=== PATIENT | male | born 1975 | race Caucasian/White ===

== ENCOUNTER 2024-01-01 21:43 | Emergency (ER) | payer OTHER, SELFPAY ==
[2024-01-01 21:45] VITALS: BP 151/105
[2024-01-01 22:19] LABS: % Basophils 0.3 % (0-2); % Eosinophils 0.4 % (0-6); % Immature Granulocytes 0.3 % (0-0.5); % Lymphocytes 16.5 % (20.5-51.1); % Monocytes 5.5 % (1.7-9.3); Absolute Eosinophils 0.1 10^3/uL (0-0.7); Absolute Lymphocytes 2.3 10^3/uL (1.2-3.4); Absolute Monocytes 0.8 10^3/uL (0.1-0.6); Absolute Neutrophils 10.9 10^3/uL (1.4-6.5); Hematocrit 43.4 % (39.0-52.0); Hemoglobin 15.6 g/dL (13.0-18.0); Mean Corp Hgb Conc. 35.9 g/dL (33.0-37.0); Mean Corpuscular Hgb 30.9 pg (27.0-31.0); Mean Corpuscular Volume 85.9 fL (80.0-94.0); Mean Platelet Volume 9.3 fL (7.4-10.4); Nucleated Red Blood Cells % 0 % (-); Platelet Count 300 10^3/uL (130-400); Red Blood Cell Count 5.05 10^6/uL (4.70-6.10); Red Cell Dist. Width 11.4 % (11.5-14.5); White Blood Cell Count 14.2 10^3/uL (4.8-10.8)
[2024-01-01 22:32] LABS: ALT (SGPT) 21 U/L (0-50); AST (SGOT) 24 U/L (17-59); Albumin 4.4 g/dl (3.5-5.0); Alkaline Phosphatase 83 U/L (38-126); Blood Urea Nitrogen 14 mg/dl (9-20); Calcium 9.9 mg/dl (8.4-10.2); Carbon Dioxide 26 mmol/L (22-30); Chloride 103 mmol/L (98-107); Glucose 107 mg/dl (70-99); Potassium 3.8 mmol/L (3.5-5.1); Sodium 140 mmol/L (135-145); Total Bilirubin 0.6 mg/dl (0.2-1.3); eGFR > 60.00
[2024-01-01 22:34] LABS: Lipase 155 U/L (23-300); Total Protein 7.5 g/dl (6.3-8.2)
[2024-01-01 22:43] VITALS: BP 160/106
[2024-01-01 22:44] VITALS: BMI 24.1
[2024-01-01 23:00] VITALS: BP 146/89
--- NOTE | 2024-01-01 23:46 | ED.GENMED ---
History of Present Illness
General
Chief Complaint: Abdominal Symptoms
Source: patient
Exam Limitations: none
Time Seen by Provider: 01/01/24 23:01
Travel History
Have you had any contact with someone who has COVID-19?: No
Do you have any symptoms of coronavirus? Fever > 100 degrees, chills, cough, shortness of breath, sore throat, loss of taste or smell, muscle aches, or headache?: No
History of Present Illness
History of Present Illness:
This is a 48 year old male that comes in with c/o abd pain. States that this started a few months ago. States that he is nauseated, his stool has a fowl smell, is oily and thin. States that his PCP ordered some blood work and his Amylase and Lipase
where elevated. States that he has no appetite and has lost weight. States that he has had heart burn, and he feels foggy. Denies any fever, chills, chest pain, SOB, vomiting, diarrhea, dizziness, urinary burning.
Past History
Past History
ED Past Medical History: GERD, HTN, Psychiatric (Anxiety) and Other (Kidney stone, Back problems�thoracic herniated disks)
ED Past Surgical History: Urological (Kidney stent)
Social History
Tobacco: Former smoker
Alcohol: Occasional
Personal:
Living: with family
Employment: Employed
Review of Systems
Review of Systems
All Other Systems: ROS reviewed and negative except as documented in HPI and ROS
Constitutional: Reports no symptoms; Denies fever or chills
EENT: Reports no symptoms
Respiratory: Denies cough or trouble breathing
Cardiac: Denies chest pain
ABD/GI: Reports abdominal pain, nausea and other (Heart burn, Stool is narrow, fowl smelling and oily); Denies vomiting or diarrhea
: Reports no symptoms; Denies dysuria, frequency or urgency
Musculoskeletal: Reports no symptoms
Skin: Reports no symptoms
Neurological: Reports headache and other (feels like he is in a fog); Denies dizzy
Psychiatric: Reports no symptoms
Phy Exam
General Physical Exam
General Presentation: no apparent distress
General age: appears stated age
General Skin: warm and dry
General Habitus: normal
General Mental: alert
General Hydration: appears well hydrated
ENT Exam
ENT Exam: TM's normal, pharynx normal and neck supple
Eye Exam
Eye Exam: EOMI
Cardiovascular Exam
Cardiovascular Exam: regular rate/rhythm, no edema, no murmur and normal peripheral pulses
Pulmonary Exam
Pulmonary Exam: lungs clear, no respiratory distress, no rales, chest non tender, no crackles, no rhonchi, no wheezing and no cough
Gastrointestinal Exam
Gastrointestinal Exam: soft, no organomegaly, no pulsatile mass, non distended and other (Hypoactive bowel sounds, Slight Upper abd tenderness with palpation)
Musculoskeletal Exam
Musculoskeletal Exam: full ROM and no edema
Skin Exam
Skin Exam: normal color, warm/dry, no rash and no petechia
Psychiatric Exam
Psychiatric Exam: normal mood/affect
Course
Orders/Labs/Results
Orders:
Orders
01/01/24 21:50
IV Insert/Care/Rem.- Treatment PRN
01/01/24 21:51
Electrocardiogram (*1) Urgent
Reason for Study: Abdominal Pain
EKG- Treatment ONCE
01/01/24 22:01
Complete Blood Count/With Diff Urgent
Comprehensive Metabolic Panel Urgent
Lipase Urgent
01/01/24 23:45
0.9% Sodium Chloride 1000 ml [Nss] 1,000 ml IV BOLUS
Iohexol [Omnipaque] See Protocol PO NOW STA
Ketorolac [Toradol] 30 mg IV NOW STA
Pantoprazole [Protonix IV] 40 mg IV NOW STA
01/02/24 00:15
CT Abd/pel W Iv And Oral Contr Urgent
Reason For Exam: Abd pain, change in stool, Weight loss
Abnormal Lab Results
01/01/24
22:01
WBC 14.2 H 10^3/uL
(4.8-10.8)
RDW 11.4 L %
(11.5-14.5)
Absolute Neuts (auto) 10.9 H 10^3/uL
(1.4-6.5)
Absolute Monos (auto) 0.8 H 10^3/uL
(0.1-0.6)
Neutrophils % 77.0 H %
(42.2-75.2)
Lymphocytes % 16.5 L %
(20.5-51.1)
Glucose 107 H mg/dl
(70-99)
01/01/24 22:01
01/01/24 22:01
Leukocytosis, Glucose nonfasting, Lipase normal at 155
Vital Signs
Initial and Last Documented VS:
Initial Vital Signs
Temp Pulse Resp BP Pulse Ox
98.5 F 90 18 151/105 97
01/01/24 21:45 01/01/24 21:45 01/01/24 21:45 01/01/24 21:45 01/01/24 21:45
Last Documented Vital Signs
Temp Pulse Resp BP Pulse Ox
98.5 F 90 18 147/99 96
01/01/24 21:45 01/01/24 21:45 01/01/24 21:45 01/02/24 02:00 01/02/24 02:00
MDM/Problems Addressed
Differential Diagnosis Includes:
Colitis, Gastritis,
MDM/Problems Addressed:
This is a 48 year old male that comes in with c/o abd pain. States that this has been going on for a month and his PCP ordered blood work. States that his amylase and Lipase were elevated. State that he was told to come to the ER. States that his
stool is narrow, fowl smelling and oily. State that he has no appetite and he has lost weight.
Will check labs and get CT scan. WIll also give IV fluids and pain medication.
Chronic conditions affecting care:
NA
Acute Exacerbation and/or Progression of Chronic Illness:
NA
*Radiology
Radiology exam reviewed: radiology read reviewed (CT night hawk- Wall thickening of loops of small bowel within the central abdomen likely represents underlying enteritis. NO bowel obstruction. Normal gallbladder and appendix. Incidentals: No
obstructive uropathy. No hepatic or pancreatic mass. No abd aortic aneurysm. No acute osseous abnormality. ) and other (CT cont- No acute abnormality within the visualized lungs. No acute abnormality within the visualized soft tissues. )
*Pulse Oximetry
Patient hypoxic: no
*EKG
Interpreted by ED Provider?: NA
Rate: EKG- N/A
*Woodworking Craftsman Interpretation
Rate: Woodworking Craftsman- N/A
*Critical Care Note
Total Time (30-74mins, 75-104mins- exclusive of procedures): Not Applicable
ED Attending Note
-
Portions of this chart may have been created with voice recognition software.� Occasional wrong word or��sound alike� substitutions may have occurred due to the inherent limitations of voice recognition software.
Discharge Plan
Departure
Patient Disposition: Home (Routine Discharge)
Date of Disposition: 01/02/24
Time of Disposition: 03:38
Patient with high blood pressure during this ER visit?: Yes
Condition: Good
Covid-19: Not Applicable
Discharge Problem:
Abdominal pain, Enteritis
Instructions: Abdominal Pain, BLOOD PRESSURE
Prescriptions:
No Action
lorazepam 1 MG tablet
1 mg PO DAILY
losartan 100 MG tablet
100 mg PO .3 TIMES WEEKLY
fluticasone propionate [Flovent HFA] 1 PUFF HFA aerosol inhaler
2 puff inhalation DAILY
cyclobenzaprine 5 MG tablet
5 mg PO .DAILY AND HS PRN
dexlansoprazole [Dexilant] 30 MG capsule,biphase delayed releas
60 mg PO DAILY
hydrocodone-acetaminophen 1 TABLET tablet
1 tab PO Q4HPRN PRN (Reason: pain) Qty: 15 0RF
diazepam 5 MG tablet
5 mg PO TIDPRN PRN (Reason: Muscle spasm. ) Qty: 15 0RF
sucralfate 1 GM/10 ML suspension
1 gm PO QID Qty: 10 0RF
Referrals:
Lior Manning, [Family Provider] - Follow up in 2-3 days
Activity Restrictions/Additional Instructions:
As discussed, your white blood cell count is slightly elevated. This can happen with a viral illness or stress. Your CT shows that this is Enteritis. This is a viral syndrome that will go away on its own. Please increase your water intake to 8-8oz
glasses daily. Follow up with the family doctor or the GI specialist for further evaluation. IF YOU HAVE INCREASED OR CHANGING PAIN, FEVER, OR YOU HAVE ANY OTHER CONCERNS PLEASE RETURN TO THE EMERGENCY ROOM.
Interventions
Interventions:
*Risk Screen - Suicide Last Done: 01/01/24 21:45
*General Assessment Last Done: 01/01/24 21:45
*Neglect/Abuse Screening Last Done: 01/01/24 21:45
ED- Fall Risk Assessment Last Done: 01/01/24 21:45
*ED COVID-19 Vaccine History Last Done: 01/01/24 21:45
[facility]-Dmcrr[facility]-Kgtrozwtgn Assessment Last Done: 01/01/24 22:49
[2024-01-02] VITALS: BP 161/97
[2024-01-02] MEDS: OMNIPAQUE 50 ML PO (00:05)
[2024-01-02] MEDS: NSS 1000 IV (00:15)
[2024-01-02] MEDS: PROTONIX IV 40 MG IV (00:20)
[2024-01-02] MEDS: TORADOL 30 MG IV (00:20)
[2024-01-02 01:00] VITALS: BP 146/95
[2024-01-02 02:00] VITALS: BP 147/99
[2024-01-02 03:00] VITALS: BP 144/96
== END 2024-01-02 03:56 | disposition home or self-care (01) ==
LOC: EMR 21:43
PROVIDERS: Emergency Medicine; EMERGENCY PHYSICIAN Emergency Medicine; FAMILY PHYSICIAN Family Medicine
DX: R10.9 Unspecified abdominal pain (principal); K52.9 Noninfective gastroenteritis and colitis, unspecified; I10 Essential (primary) hypertension; Z87.891 Personal history of nicotine dependence
CPT/HCPCS: 99285; 96374; 96375; 96361; 74177; 80053; 83690; 85025; 93005; Q9967

== ENCOUNTER → 2024-06-21 18:51 | Outpatient (REF) | payer OTHER, SELFPAY | LOC: MRI 3T 18:51 | PROVIDERS: ATTENDING PHYSICIAN Family Medicine | DX: M75.42 Impingement syndrome of left shoulder (principal); M75.41 Impingement syndrome of right shoulder | CPT/HCPCS: 72141 ==

== ENCOUNTER → 2024-09-06 19:32 | Outpatient (REF) | payer OTHER, SELFPAY | LOC: MRI 19:32 | PROVIDERS: ATTENDING PHYSICIAN Family Medicine | DX: R10.9 Unspecified abdominal pain (principal) | CPT/HCPCS: 74183; A9575 ==